=== PATIENT | male | born 1990 ===

== ENCOUNTER 2018-11-10 19:24 | Emergency (ER) | payer OTHER | END 2018-11-10 20:32 | disposition home or self-care (01) | LOC: EDH 19:24 | DX: S69.92XA Unspecified injury of left wrist, hand and finger(s), initial encounter (principal); W18.39XA Other fall on same level, initial encounter; Y93.89 Activity, other specified; Y92.89 Other specified places as the place of occurrence of the external cause; Y99.8 Other external cause status | CPT/HCPCS: 29125; 73110 ==